=== PATIENT | female | born 1955 | race Caucasian/White ===

== ENCOUNTER 2017-08-30 10:24 | Day surgery (SDC) | payer OTHER ==
[~2017-08-30] VITALS: Ht 160 cm; Wt 75.9 kg
[~2017-08-30 10:24] MED LIST: DIVIGEL TOP; FISH1000 PO; FLAX PO; LEVSOD137 PO; METF500 PO; PROG100 PO; ZESTRIL PO
== END 2017-08-30 12:38 | disposition home or self-care (01) ==
LOC: ORSCSDS 10:24
PROVIDERS: Internal Medicine Gastroenterology
PROC: 0D5N8ZZ Destruction of Sigmoid Colon, Via Natural or Artificial Opening Endoscopic (ICD-10-PCS; principal; 2017-08-30 11:45)
PROC: 0DBN8ZX Excision of Sigmoid Colon, Via Natural or Artificial Opening Endoscopic, Diagnostic (ICD-10-PCS; principal; 2017-08-30 11:45)
DX: R19.5 Other fecal abnormalities (principal); D12.5 Benign neoplasm of sigmoid colon; K64.4 Residual hemorrhoidal skin tags; K64.8 Other hemorrhoids; Q27.33 Arteriovenous malformation of digestive system vessel; I10 Essential (primary) hypertension; E11.9 Type 2 diabetes mellitus without complications; Z87.891 Personal history of nicotine dependence; Z79.84 Long term (current) use of oral hypoglycemic drugs; Z79.899 Other long term (current) drug therapy
CPT/HCPCS: 82947; 88305; J7120